=== PATIENT | male | born 1970 | race Caucasian/White ===

== ENCOUNTER 2018-07-29 06:34 | Observation (INO) | payer BC ==
--- NOTE | 2018-07-29 07:33 | ED ---
General Adult HPI - General Chief complaint: Urogenital Stated complaint: Urogenital Time Seen by Provider: 07/29/18 07:02 Source: patient, RN notes reviewed Mode of arrival: EMS Limitations: no limitations - History of Present Illness Initial comments: Patient is a pleasant 47-year-old male presenting to the emergency Department as a transfer from [facility]. Patient has had urinary retention. While there patient did have Altamirano catheter placed and does feel much better. Computed tomography scan was concerning for 5.5 cm mass. also was diagnosed with new-onset diabetes with blood sugar of 345. Patient was unaware of this. Patient was also found to have intermittent tachycardia up to 1:30. Patient denies palpitations. No chest pain. No dyspnea. No leg pain or leg swelling. No history of any similar symptoms previously. - Related Data Home Medications Medication Instructions Recorded Confirmed Atorvastatin Calcium [Lipitor] 20 mg PO HS 11/21/13 09/24/15 Levothyroxine Sodium [Synthroid] 75 mcg PO DAILY 11/21/13 09/24/15 Lisinopril-Hctz 10-12.5 mg 1 each PO DAILY 11/21/13 09/24/15 [Zestoretic 10-12.5] Ibuprofen [Motrin] 600 mg PO Q6HR PRN 09/24/15 09/24/15 Previous Rx's Medication Instructions Recorded Cyclobenzaprine [Flexeril] 10 mg PO TID PRN #15 tab 09/24/15 HYDROcodone/APAP 7.5-325MG [Jefferson 1 tab PO Q6HR PRN #20 tab 09/24/15 7.5-325] Allergies Allergy/AdvReac Type Severity Reaction Status Date / Time No Known Allergies Allergy Verified 07/29/18 06:40 Review of Systems ROS Statement: Those systems with pertinent positive or pertinent negative responses have been documented in the HPI. ROS Other: All systems not noted in ROS Statement are negative. Constitutional: Denies: fever, chills Eyes: Denies: eye pain ENT: Denies: ear pain Respiratory: Denies: cough, dyspnea Cardiovascular: Denies: chest pain, palpitations Endocrine: Denies: fatigue Gastrointestinal: Denies: abdominal pain, nausea, vomiting Genitourinary: Reports: other (Retention) Musculoskeletal: Denies: back pain Skin: Denies: rash Neurological: Denies: weakness Past Medical History Past Medical History: Hyperlipidemia, Hypertension Additional Past Medical History / Comment(s): hypothyroid, back pain History of Any Multi-Drug Resistant Organisms: None Reported Past Surgical History: No Surgical Hx Reported Additional Past Surgical History / Comment(s): bilateral Carpal Tunnel release Past Psychological History: No Psychological Hx Reported Smoking Status: Current every day smoker Past Alcohol Use History: None Reported Past Drug Use History: None Reported General Exam Limitations: no limitations General appearance: alert, in no apparent distress Head exam: Present: atraumatic Eye exam: Present: normal appearance, PERRL ENT exam: Present: normal oropharynx Neck exam: Present: normal inspection Respiratory exam: Present: normal lung sounds bilaterally Cardiovascular Exam: Present: regular rate, normal rhythm, other (Sinus tachycardia at 138 on the monitor. During auscultation patient did convert to sinus rhythm.) GI/Abdominal exam: Present: soft. Absent: tenderness exam: Present: normal inspection, other (Altamirano catheter in place). Absent: testicular tenderness, scrotal swelling Extremities exam: Present: normal inspection. Absent: pedal edema, calf tenderness Neurological exam: Present: alert Psychiatric exam: Present: normal affect, normal mood Skin exam: Present: normal color Course Vital Signs 07/29/18 06:36 Temperature 98.1 F Pulse Rate 89 Respiratory 19 Rate O2 Sat by Pulse 96 Oximetry - Reevaluation(s) Reevaluation #1: 07/29/18 07:31 Computed tomography scan of the chest considered secondary to undiagnosed intermittent tachycardia. With possible mass could be possible PE. Patient did have recent computed tomography scan done however with contrast. Therefore we will order a VQ scan to further evaluate this. Case was discussed in detail Dr. Ellsworth, covering for Dr. Davis, who will admit. Patient and family are aware of plan. Case was also discussed with Dr. Mae from neurology will consult. EKG Findings - EKG Comments: EKG Findings:: Normal sinus rhythm 82. AK 184. QRS 88. QT 390. QTC 455. Normal axis. Normal QRS. No acute ST change. Disposition Clinical Impression: Bladder mass, Urinary retention, Diabetes mellitus, new onset, Tachycardia Disposition: ADMITTED IP TO THIS HOSP Is patient prescribed a controlled substance at d/c from ED?: No Referrals: Ashli Davis DO [Primary Care Provider] - 1-2 days Decision Time: 07:35
[2018-07-29] MEDS ORDERED: NALOXONE 0.4 MG/ML 1 ML VIAL IV PRN (07:38)
[2018-07-29] MEDS ORDERED: SODIUM CHLORIDE 0.9% 1,000 ML IV SCH (07:45)
[2018-07-29 10:03] LABS: Magnesium 1.7 mg/dL (1.6-2.3)
[2018-07-29 10:21] LABS: T4, Free (Free Thyroxine) 1.34 ng/dL (0.78-2.19)
--- NOTE | 2018-07-29 10:38 | NM ---
EXAMINATION TYPE: NM pul vent and perfuse DATE OF EXAM: 07/29/2018 COMPARISON: NONE, no chest x-ray submitted for correlation HISTORY: Tachycardia TECHNIQUE: Utilizing inhalation of 35.9 mCi Tc 99m DTPA aerosol and intravenous injection of 5.19 mC i of Tc 99m MAA, ventilation and perfusion images are acquired post injection in multiple projections . FINDINGS: Normal radiotracer distribution is noted in the lungs. There is no evidence of mismatched defects. Pe rfusion overall appears improved as compared to ventilation. IMPRESSION: Low probability for pulmonary embolism is favored
[2018-07-29 11:14] LABS: Glucose,Whole Blood 226 mg/dL (75-99)
[2018-07-29] MEDS ORDERED: INFLUENZA VACCINE (6 MOS+) 60 MCG/0.5 ML SYRINGE IM ONE (11:19)
[2018-07-29] MEDS: INSULIN ASPART 100 UNIT/ML 1 ML 10 ML VIAL SQ SCH ×3 (12:33→20:55)
[2018-07-29 12:41] LABS: Creatine Kinase 127 U/L (55-170)
--- NOTE | 2018-07-29 12:47 | P.CRDCN ---
History of Present Illness Consult date: 07/29/18 Chief complaint: Hematuria History of present illness: This is a pleasant 47-year-old gentleman with a past medical history significant for hypertension as well as significant history of smoking [facility] and management of what it seems to be a bladder mass. The patient was in his usual state of health until the last 24 hours when he started noticing blood in the urine. No other symptoms of fever or chills. He presented to the emergency room at [facility] for further evaluation and he underwent a computed tomography scan of the abdomen and pelvis which revealed bladder mass. Subsequently the patient was transferred here. He is in process of being seen by the urology service. We get involved in his care because during his hospitalization to [facility] he did have multiple episodes of tachycardia. No episode of tachycardia while the patient here. I did review the chart from [facility] and it did reveal one episode of narrow complex tachycardia likely represent atrial tachycardia but it was of brief duration. During these episodes, the patient was completely asymptomatic and denies having any feeling of heart racing or fluttering, dizziness or lightheadedness, and no symptoms of chest pain or chest discomfort. The patient does have hypertension and also he is obese. He unfortunately a smoker but he is working on smoking cessation. Past Medical History Past Medical History: Hyperlipidemia, Hypertension, Thyroid Disorder Additional Past Medical History / Comment(s): hypothyroid, back pain History of Any Multi-Drug Resistant Organisms: None Reported Past Surgical History: Tonsillectomy Additional Past Surgical History / Comment(s): bilateral Carpal Tunnel release Past Psychological History: No Psychological Hx Reported Smoking Status: Current every day smoker Past Alcohol Use History: None Reported Past Drug Use History: None Reported - Past Family History Mother Family Medical History: Cancer, Hyperlipidemia, Hypertension, Myocardial Infarction (CT), Thyroid Disorder Additional Family Medical History / Comment(s): Breat Ca Father Family Medical History: Myocardial Infarction (CT) Additional Family Medical History / Comment(s): Patients grandparents also had heart attacks. Son(s) Additional Family Medical History / Comment(s): Brain tumor, appendectomy Medications and Allergies Home Medications Medication Instructions Recorded Confirmed Type Atorvastatin Calcium [Lipitor] 20 mg PO HS 11/21/13 07/29/18 History Aspirin EC [Ecotrin] 325 mg PO DAILY 07/29/18 07/29/18 History Levothyroxine Sodium [Synthroid] 125 mcg PO DAILY 07/29/18 07/29/18 History Lisinopril-Hctz 20-12.5 mg 1 tab PO DAILY 07/29/18 07/29/18 History [Zestoretic 20-12.5] Allergies Allergy/AdvReac Type Severity Reaction Status Date / Time No Known Allergies Allergy Verified 07/29/18 09:09 Physical Exam Vitals: Vital Signs Temp Pulse Pulse Resp BP BP Pulse Ox 07/29/18 11:16 55 L 07/29/18 10:42 98.6 F 55 L 16 113/69 98 07/29/18 09:29 81 16 119/72 97 07/29/18 06:36 98.1 F 89 19 96 Intake and Output 07/28/18 07/29/18 07/29/18 22:59 06:59 14:59 Other: Voiding Method Indwelling Catheter Indwelling Catheter Weight 118.388 kg - Constitutional General appearance: no acute distress - Respiratory Respiratory: bilateral: CTA - Cardiovascular Rhythm: regular Heart sounds: normal: S1, S2 Abnormal Heart Sounds: systolic murmur Results Current Medications Generic Name Dose Route Start Last Admin Trade Name Freq PRN Reason Stop Dose Admin Sodium Chloride 1,000 mls @ 20 mls/hr 07/29/18 07:45 07/29/18 11:26 Saline 0.9% IV Not Given .Q24H [facility] Insulin Aspart 0 unit 07/29/18 12:30 Novolog SQ ACHS [facility] Protocol Naloxone HCl 0.2 mg 07/29/18 07:38 Narcan IV Q2M PRN Opioid Reversal Intake and Output 07/28/18 07/29/18 07/29/18 22:59 06:59 14:59 Other: Voiding Method Indwelling Catheter Indwelling Catheter Weight 118.388 kg Assessment and Plan Assessment: Assessment #1 hematuria #2 bladder mass of unknown etiology #3 narrow complex tachycardia likely represent atrial tachycardia #4 history of smoking Plan #1 the TSH and T4 where ordered will follow-up with that #2 I will obtain an echocardiogram was Doppler #3 the patient's resting heart rate has been in the 50s now #4 I would hold on any AV yuval kev agents at this point #5 continue monitor the rhythm while the patient is in the hospital Thank you for allowing us participate in his care and we will continue following up with the patient
[2018-07-29 12:54] LABS: Creatine Kinase MB 0.4 ng/mL (0.0-2.4); Troponin I <0.012 ng/mL (0.000-0.034)
--- NOTE | 2018-07-29 16:19 | P.GSCN ---
History of Present Illness Consult date: 07/29/18 Reason for Consult: Hematuria, urinary retention Requesting physician: Low Ellswroth History of present illness: The patient is a 47-year-old male who was treated for a urinary tract infection 10-15 years ago. He has an otherwise unremarkable urologic history. Yesterday , he began to experience significant urinary frequency and difficulty voiding. He subsequently developed gross hematuria. He presented to the emergency room at [facility]. A Altamirano catheter was placed with return of 400 mL of urine. He developed tachycardia during that hospitalization. He was referred to [facility] for further management. He denies any prior history of urolithiasis. Review of Systems - Constitutional Denies chills, Denies fever - Gastrointestinal Denies nausea, Denies vomiting - Genitourinary Reports hematuria, Reports urinary retention, Denies dysuria Past Medical History Past Medical History: Hyperlipidemia, Hypertension, Thyroid Disorder Additional Past Medical History / Comment(s): hypothyroid, back pain History of Any Multi-Drug Resistant Organisms: None Reported Past Surgical History: Tonsillectomy Additional Past Surgical History / Comment(s): bilateral Carpal Tunnel release Past Psychological History: No Psychological Hx Reported Smoking Status: Current every day smoker Past Alcohol Use History: None Reported Past Drug Use History: None Reported - Past Family History Mother Family Medical History: Cancer, Hyperlipidemia, Hypertension, Myocardial Infarction ([place]), Thyroid Disorder Additional Family Medical History / Comment(s): Otilia Salvador Father Family Medical History: Myocardial Infarction ([place]) Additional Family Medical History / Comment(s): Patients grandparents also had heart attacks. Son(s) Additional Family Medical History / Comment(s): Brain tumor, appendectomy Medications and Allergies Home Medications Medication Instructions Recorded Confirmed Type Atorvastatin Calcium [Lipitor] 20 mg PO HS 11/21/13 07/29/18 History Aspirin EC [Ecotrin] 325 mg PO DAILY 07/29/18 07/29/18 History Levothyroxine Sodium [Synthroid] 125 mcg PO DAILY 07/29/18 07/29/18 History Lisinopril-Hctz 20-12.5 mg 1 tab PO DAILY 07/29/18 07/29/18 History [Zestoretic 20-12.5] Allergies Allergy/AdvReac Type Severity Reaction Status Date / Time No Known Allergies Allergy Verified 07/29/18 09:09 Surgical - Exam Vital Signs Temp Pulse Resp Pulse Ox 98.1 F 89 19 96 07/29/18 06:36 07/29/18 06:36 07/29/18 06:36 07/29/18 06:36 - General well developed, well nourished, no distress - Neck no masses, trachea midline - Respiratory normal respiratory effort - Abdomen Abdomen: soft, non tender, no guarding, no rigid, no rebound - Genitourinary normal penis with no external lesions, testicles non-tender - Rectum Rectum: normal sphincter tone, no masses, other (Prostate mildly enlarged but smooth) - Psychiatric oriented to time, oriented to person, oriented to place, speech is normal, memory intact Results - Labs Abnormal Lab Results - Last 24 Hours (Table) 07/29/18 07/29/18 Range/Units 09:30 11:13 POC Glucose (mg/dL) 226 H (75-99) mg/dL Free T3 pg/mL 2.5 L (2.8-5.3) pg/ml Assessment and Plan (1) Gross hematuria Current Visit: Yes Status: Acute Code(s): R31.0 - GROSS HEMATURIA SNOMED Code(s): 918737000 (2) Urinary retention Current Visit: Yes Status: Acute Code(s): R33.9 - RETENTION OF URINE, UNSPECIFIED SNOMED Code(s): 845865479 (3) Abnormal results on imaging study of genitourinary system Current Visit: Yes Status: Acute Code(s): R93.89 - ABNORMAL FINDINGS ON DX IMAGING OF OTH BODY STRUCTURES SNOMED Code(s): 857206658 Plan: The Altamirano catheter is currently draining blood-tinged urine. I have ordered tamsulosin. The Altamirano catheter will be removed tomorrow morning for a voiding trial. Bladder scan will be utilized to assess bladder emptying. The catheter will be replaced if the urinary retention persists. If he is able to void and empty his bladder adequately, he may be discharged home on tamsulosin. I explained to the patient that the computed tomography scan showed a possible bladder mass, which could represent bladder cancer. I also explained to him that this is more common in smokers. I thus stressed the need for him to follow -up in 1-2 weeks to undergo office cystoscopy. Please notify me if I can be of any further assistance during this hospitalization. Time with Patient: Greater than 30
[2018-07-29 17:17] LABS: Glucose,Whole Blood 266 mg/dL (75-99)
[2018-07-29] MEDS: TAMSULOSIN 0.4 MG CAP.ER.24H PO SCH (17:24)
[2018-07-29 18:38] LABS: Creatine Kinase 126 U/L (55-170)
[2018-07-29 18:51] LABS: Creatine Kinase MB 0.5 ng/mL (0.0-2.4); Troponin I <0.012 ng/mL (0.000-0.034)
[2018-07-29 20:49] LABS: Glucose,Whole Blood 263 mg/dL (75-99)
[2018-07-29] MEDS: NICOTINE 21MG/24HR PATCH TRANSDERM SCH (20:55)
--- NOTE | 2018-07-29 20:55 | HP ---
HISTORY AND PHYSICAL DATE OF ADMISSION: 07/29/2018 DATE OF SERVICE: 07/29/2018 PRESENTING COMPLAINT: Hematuria. HISTORY OF PRESENTING COMPLAINT: This is a very pleasant 47 -year-old patient of Dr. Ashli Davis. Chronic stable medical conditions include hyperlipidemia, hypertension, hypothyroid and chronic low back pain. The patient yesterday morning had multiple bowel movements all formed and then he was also making frequent urination. Also, then he noticed that he was not able to make urine and started having drops of blood, decided to go down to [facility]. There a Altamirano catheter was placed and blood came out. The patient also had a CT scan of the abdomen where a 5.5 cm bladder mass was found. The patient also felt weak and tired. Heart rate was up to 130s and patient was because of lack of urologist there, the patient was transferred to [facility]. Urology was consulted. There is no chest pain, palpitation. Patient is a smoker. REVIEW OF SYSTEMS: CONSTITUTIONAL: Tired. HEENT: None. RESPIRATORY none. CARDIOVASCULAR: None. GASTROINTESTINAL: As above. GENITOURINARY as above. MUSCULOSKELETAL: Chronic low back pain. DERMATOLOGICAL, HEMATOLOGIC, LYMPHATIC: none. PSYCHIATRY: None. NEUROLOGICAL: None. PAST MEDICAL HISTORY: Hypertension, hyperlipidemia, hypothyroid, chronic low back pain. PAST SURGICAL HISTORY: Bilateral carpal tunnel release, tonsillectomy. SOCIAL HISTORY: Smokes a pack a day for about 20 years. . Employed as a welder/fitter. FAMILY HISTORY: Breast cancer. HOME MEDICATIONS: 1. Zestoretic 20/12.5 one tab p.o. daily. 2. Synthroid 125 mcg a day. 3. Lipitor 20 mg q.h.s. 4. Aspirin 325 mg p.o. daily. ALLERGIES: None. PHYSICAL EXAMINATION: VITAL SIGNS: Temperature 98.5, pulse 49, respiration 14, blood pressure 118/58, pulse ox 99% on room air. GENERAL APPEARANCE: Well built, BMI 40.9. Lying in bed, awake tired. EYES: Pupils equal. Conjunctivae normal. HEENT: External appearance of nose and ears normal. Oral cavity normal. NECK: JVD not raised. Mass not palpable. RESPIRATORY: Effort normal. LUNGS are clear. CARDIOVASCULAR: First and second sounds normal. No edema. ABDOMEN: Distended, soft. Liver and spleen not palpable. Altamirano catheter in place with bloody urine. LYMPHATICS: No lymph nodes palpable in the neck and axilla. PSYCHIATRY: Alert and oriented x3. Mood and affect normal. NEUROLOGICAL: Pupils equal. Cranial nerves grossly intact. Power and sensation grossly intact. INVESTIGATIONS: Accu-Cheks are noted. CT scan from [facility] reported a 5.5 cm bladder mass. ASSESSMENT: 1. Acute hematuria with bladder mass of 5.5 cm in a smoker, highly suggestive of malignancy. 2. Essential hypertension. 3. Hyperlipidemia. 4. Hypothyroidism. 5. Morbid obesity BMI 40.9. 6. Chronic nicotine dependence. Patient is a cigarette smoker. 7. Atrial tachycardia. PLAN: Altamirano catheter is in place. The patient was seen by Dr. Mae this evening. Started on Flomax. He wanted this trial of DC Altamirano in the morning and wishes to see the patient as outpatient for cystoscopy. The patient also seen by Cardiology. Think patient may have underlying atrial tachycardia, ordered a 2-D echocardiogram. Care was discussed with the patient and at the bedside. Questions were answered. Copy to Dr. Ashli Davis. MMJAIRL / IJN: [id number] /
[2018-07-29] MEDS: LACTATED RINGERS 1,000 ML IV SCH (20:56)
[2018-07-29] MEDS ORDERED: ATORVASTATIN 20 MG TAB PO SCH (21:00)
[2018-07-29] MEDS: LISINOPRIL-HCTZ 20-12.5 MG 1 EACH TAB PO SCH (21:46)
[2018-07-29] MEDS ORDERED: ACETAMINOPHEN TAB 500 MG TAB PO PRN (21:47)
[2018-07-30 06:02] LABS: Basophils % (A) 0 %; Eosinophils # (A) 0.2 k/uL (0-0.7); Eosinophils % (A) 2 %; HGB 12.5 gm/dL (13.0-17.5); Lymphocytes # (A) 2.3 k/uL (1.0-4.8); Lymphocytes % (A) 24 %; MCH 27.7 pg (25.0-35.0); Mean Platelet Volume 6.8; Monocytes # (A) 0.6 k/uL (0-1.0); Monocytes % (A) 6 %; Neutrophils # (A) 6.2 k/uL (1.3-7.7); Neutrophils % (A) 66 %; Platelet Count 231 k/uL (150-450); RBC 4.53 m/uL (4.30-5.90); RDW 13.9 % (11.5-15.5); WBC 9.5 k/uL (3.8-10.6)
[2018-07-30 06:03] LABS: Glucose,Whole Blood 214 mg/dL (75-99)
[2018-07-30 06:24] LABS: Anion Gap 7 mmol/L; Blood Urea Nitrogen 15 mg/dL (9-20); Calcium 9.1 mg/dL (8.4-10.2); Carbon Dioxide 28 mmol/L (22-30); Chloride 102 mmol/L (98-107); Glucose 200 mg/dL (74-99); Potassium 3.6 mmol/L (3.5-5.1); Sodium 137 mmol/L (137-145)
[2018-07-30] MEDS ORDERED: LEVOTHYROXINE 125 MCG TAB PO SCH (06:30)
[2018-07-30] MEDS: INSULIN ASPART 100 UNIT/ML 1 ML 10 ML VIAL SQ SCH ×3 (06:31→16:51)
[2018-07-30 07:54] VITALS: RESP 16
[2018-07-30] MEDS: LACTATED RINGERS 1,000 ML IV SCH ×2 (08:00→11:50)
[2018-07-30] MEDS: NICOTINE 21MG/24HR PATCH TRANSDERM SCH (08:01)
[2018-07-30] MEDS: LISINOPRIL-HCTZ 20-12.5 MG 1 EACH TAB PO SCH (08:01)
--- NOTE | 2018-07-30 08:37 | CT ---
EXAMINATION TYPE: CT lumbar spine wo/w con DATE OF EXAM: 07/30/2018 COMPARISON: Outside CT 07/29/2018 HISTORY: 47-year-old male with bladder mass, low back pain TECHNIQUE: Contiguous axial scanning of the lumbar spine performed without and with IV Contrast, leila ent injected with 100 mL of Isovue 300. Coronal/sagittal reconstructions performed. CT DLP: 2852.9 mGycm Automated exposure control for dose reduction was used. FINDINGS: There is a transitional lumbosacral segment is noted as a sacralized L5. There is osseous fusion of t he right sided transverse process with the sacroiliac but an assimilation joint on the left. Degenera tive disc disease above at L4-L5 with diffuse disc bulge. Additional bulging discs at L1-L4 levels. Hypertrophic facet arthropathy lower lumbar spine. On the right, changes result in mild neural foraminal stenosis on both sides at L4-L5. Disc material may abut the traversing left L5 nerve root. Small chronic endplate Schmorl's nodes at L1-L2. No acute fracture or osseous destructive process seen. Vertebral body heights are preserved and alignment is maintained. IMPRESSION: 1. TRANSITIONAL LUMBOSACRAL SEGMENT DENOTED A SACRALIZED L5. THERE IS BONY FUSION WITH THE SACRUM ON THE RIGHT AND AN ASSIMILATION JOINT ON THE LEFT. 2. MILD MULTILEVEL DEGENERATIVE DISC DISEASE CHARACTERIZED BY DIFFUSE DISC BULGING, LARGEST AT L4-L5. ADDITIONAL FACET ARTHROPATHY. 3. CHANGES RESULT IN MILD BILATERAL NEURAL FORAMINAL STENOSIS AT L4-L5. DISC MATERIAL MAY ALSO ABUT T HE TRAVERSING LEFT L5 NERVE ROOT AT THIS LEVEL. 4. NO FAZAL CANAL COMPROMISE IDENTIFIED BY CT.
[2018-07-30 09:22] LABS: Hemoglobin A1C 12.8 % (4.0-6.0)
--- NOTE | 2018-07-30 10:24 | ECHOF ---
Referral Reason:svt MEASUREMENTS -------- HEIGHT: 170.2 cm WEIGHT: 114.3 kg BP: 116/73 RVIDd: 3.3 cm (< 3.3) IVSd: 1.3 cm (0.6 - 1.1) LVIDd: 4.1 cm (3.9 - 5.3) LVPWd: 1.3 cm (0.6 - 1.1) IVSs: 2.0 cm LVIDs: 2.4 cm LVPWs: 1.8 cm LA Diam: 3.4 cm (2.7 - 3.8) LAESV Index (A-L): 20.20 ml/m Ao Diam: 3.2 cm (2.0 - 3.7) AV Cusp: 2.4 cm (1.5 - 2.6) MV EXCURSION: 13.536 mm (> 18.000) MV EF SLOPE: 96 mm/s (70 - 150) EPSS: 0.6 cm MV E Daniel: 0.96 m/s MV DecT: 209 ms MV A Daniel: 0.91 m/s MV E/A Ratio: 1.06 RAP: 15.00 mmHg RVSP: 27.61 mmHg FINDINGS -------- Sinus rhythm. This was a technically adequate study. The left ventricular size is normal. There is mild concentric left ventricular hypertrophy. Overa ll left ventricular systolic function is normal with, an EF between 60 - 65 %. The right ventricle is mildly enlarged. Normal LA size by volume 22+/-6 ml/m2. The right atrium is normal in size. The aortic valve is trileaflet and appears structurally normal. The mitral valve is normal. Mild tricuspid regurgitation present. Right ventricular systolic pressure is normal at < 35 mmHg. The pulmonic valve was not well visualized. The aortic root size is normal. Normal inferior vena cava with less than 50% inspiratory collapse consistent with estimated right atr ial pressure of 15 mmHg. There is no pericardial effusion. CONCLUSIONS -------- 1. Sinus rhythm. 2. This was a technically adequate study. 3. The left ventricular size is normal. 4. There is mild concentric left ventricular hypertrophy. 5. Overall left ventricular systolic function is normal with, an EF between 60 - 65 %. 6. The right ventricle is mildly enlarged. 7. Normal LA size by volume 22+/-6 ml/m2. 8. The right atrium is normal in size. 9. The aortic valve is trileaflet and appears structurally normal. 10. The mitral valve is normal. 11. Mild tricuspid regurgitation present. 12. Right ventricular systolic pressure is normal at < 35 mmHg. 13. The pulmonic valve was not well visualized. 14. The aortic root size is normal. 15. Normal inferior vena cava with less than 50% inspiratory collapse consistent with estimated right atrial pressure of 15 mmHg. 16. There is no pericardial effusion. CLINICAL RESEARCH ASSOCIATE: Mary Powers RDCS
[2018-07-30 11:43] LABS: Glucose,Whole Blood 243 mg/dL (75-99)
--- NOTE | 2018-07-30 13:36 | P.PN ---
Progress Note - Text Progress Note Date: 07/30/18 Mr. Lewis continued to have hematuria overnight. The Altamirano catheter was removed this morning, and he has voided several times without difficulty. The hematuria is improved. It would be my recommendation that he be discharged home with a prescription for tamsulosin, and follow-up with me in 1-2 weeks for office cystoscopy. Please notify me if I can be of any further assistance during this hospitalization.
[2018-07-30 14:09] VITALS: BMI 39.5
--- NOTE | 2018-07-30 14:22 | P.PN ---
Subjective Progress Note Date: 07/30/18 This is a pleasant 47-year-old gentleman with history of hypertension , nicotine dependence, who was transferred from [facility], patient has a bladder mass, was seen in consultation by urology. He had his catheter removed this morning, he has voided several times since then he states that he continues to have hematuria however much art historian in color. A cardiology consultation was requested on the patient because he was having some episodes of what appeared to be atrial tachycardia. He is noted to have 1 short episode again through the night last night. An echocardiogram with Doppler study was performed which revealed a normal left ventricular systolic function. TSH level came back to be high at 15.2. Free T4 1 0.3 and Free T3 2.5. Patient was seen and examined this morning, he feels well, he's been up ambulating in the hallway without any difficulty. Objective - Vital Signs Vital signs: Vital Signs Temp 98.1 F 07/30/18 07:53 Pulse 80 07/30/18 11:10 Resp 16 07/30/18 11:02 BP 125/75 07/30/18 11:02 Pulse Ox 98 07/30/18 11:02 Intake & Output 07/29/18 07/30/18 07/30/18 18:59 06:59 18:59 Intake Total 380 1000 845 Output Total 1000 900 Balance 380 0 -55 Weight 114.5 kg 114.5 kg Intake: Intake, IV Titration 1000 125 Amount Lactated Ringers 1,000 ml 1000 125 @ 125 mls/hr IV .Q8H [facility] Rx#:[id number] Oral 380 720 Output: Urine 1000 900 Other: Voiding Method Indwelling Catheter Indwelling Catheter Indwelling Catheter # Voids 3 # Bowel Movements 1 1 - Exam PHYSICAL EXAMINATION: GENERAL: 47-year-old gentleman in no acute distress at the time of my examination HEENT: Head is atraumatic, normocephalic. Pupils equal, round. Sclera anicteric. Conjunctiva are clear. Mucous membranes of the mouth are moist. Neck is supple. There is no elevated jugular venous pressure. No carotid bruit is heard. HEART EXAMINATION: Heart S1, S2 normal. No murmur or gallop heard. CHEST EXAMINATION: Lungs are clear to auscultation and precussion. No chest wall tenderness is noted on palpation or with deep breathing. ABDOMEN: Soft, nontender. Bowel sounds are heard. No organomegaly noted. EXTREMITIES: 2+ peripheral pulses with no evidence of peripheral edema and no calf tenderness noted. NEUROLOGIC patient is awake, alert and oriented X3. . - Labs CBC & Chem 7: 07/30/18 05:16 07/30/18 05:16 Labs: Abnormal Lab Results - Last 24 Hours (Table) 07/29/18 07/29/18 07/29/18 Range/Units 09:30 17:15 20:47 Hgb (13.0-17.5) gm/dL Hct (39.0-53.0) % Glucose (74-99) mg/dL POC Glucose (mg/dL) 266 H 263 H (75-99) mg/dL Hemoglobin A1c 12.8 H (4.0-6.0) % TSH (0.465-4.680) mIU/L 07/30/18 07/30/18 07/30/18 Range/Units 05:16 05:16 05:16 Hgb 12.5 L (13.0-17.5) gm/dL Hct 38.0 L (39.0-53.0) % Glucose 200 H (74-99) mg/dL POC Glucose (mg/dL) (75-99) mg/dL Hemoglobin A1c (4.0-6.0) % TSH 15.200 H (0.465-4.680) mIU/L 07/30/18 07/30/18 Range/Units 06:02 11:23 Hgb (13.0-17.5) gm/dL Hct (39.0-53.0) % Glucose (74-99) mg/dL POC Glucose (mg/dL) 214 H 243 H (75-99) mg/dL Hemoglobin A1c (4.0-6.0) % TSH (0.465-4.680) mIU/L Assessment and Plan Plan: Assessment and plan #1 acute hematuria with bladder mass suggestive of possible malignancy #2 nicotine dependence #3 hypertension #4 hyperlipidemia #5 morbid obesity #6 atrial tachycardia Plan Echo cardiac gram with Doppler study was performed which revealed a normal left ventricular systolic function. We will start the patient on a small dose of beta kev today. From our perspective he may be able to be discharged once he is cleared by primary and urology service. We'll make him a follow-up appointment with Dr. Keys in the office. DNP note has been reviewed, I agree with a documented findings and plan of care. Patient was seen and examined.
[2018-07-30] MEDS ORDERED: METOPROLOL TARTRATE 12.5 MG TAB PO SCH (14:30)
[2018-07-30 15:42] VITALS: BP 122/78; PULSE 86; TEMP 98.2
[2018-07-30] MEDS: TAMSULOSIN 0.4 MG CAP.ER.24H PO SCH (16:31)
[2018-07-30 17:03] LABS: Glucose,Whole Blood 235 mg/dL (75-99)
--- NOTE | 2018-08-01 15:04 | DS ---
DISCHARGE SUMMARY DATE OF ADMISSION: 07/29/2018 DATE OF DISCHARGE: 07/30/2018 FINAL DIAGNOSES: 1. Acute severe hematuria from a bladder mass, POA. 2. Essential hypertension. 3. Hyperlipidemia. 4. Hypothyroidism. 5. Morbid obesity, body mass index 40.9. 6. Chronic nicotine dependence, patient is a cigarette smoker. 7. Paroxysmal atrial tachycardia. 8. Hypothyroidism, uncontrolled. 9. Diabetes mellitus type 2, new diagnosis. HOSPITAL COURSE: This pleasant gentleman presented to [facility] with severe hematuria. Urology was not available today. Hence patient was transferred here. Hematuria eventually settled down. A CT scan done did show a bladder mass of 5.5 cm. Altamirano catheter was taken off. He has been recuperating well. Seen by Dr. Anders who will see the patient as an outpatient for cystoscopy. The patient's free T4 came back a bit low and TSH was elevated at 15.2, and dose of Synthroid was adjusted. The patient had a brief run of atrial tachycardia and patient is on beta-kev for the same per Cardiology. A 2D echocardiogram showed EF of 60%-65%. Patient has evidence of DJD at L4-L5 with diffuse disc bulge. Care was discussed with the patient. Questions were answered. Overall doing better. Also talked at length about weight loss measures. Cigarette smoking cessation counseling was done for the same. Care was discussed with the patient and . I also patient knows taking care patient's multiple times in the past. The patient's sugars have been running high. Patient being started on metformin. Diabetic teaching was carried out. Discussion and discharge planning more than 35 minutes. CONSULTATIONS: Dr. Anders from Urology and Dr. Keys from Cardiology. DC MEDICATIONS: 1. Lipitor 20 mg at bedtime. 2. Zestoretic 20/12.5 one tablet p.o. daily. 3. Synthroid 100 mcg p.o. daily. 4. Lopressor 12.5 p.o. q.h.s. 5. Nicotine 21 mg patch. 6. Flomax 0.4 mg before supper, 30 tablets. 7. Glucophage 500 mg p.o. b.i.d. PHYSICAL EXAMINATION: Temperature 98.2, pulse 86, respiration 16, blood pressure 122/78, pulse ox 96% on room air. The patient's Altamirano catheter is discontinued. No further hematuria. Hemoglobin is 12.5. FOLLOWUP: Follow up with Dr. Keys on 08/17/2018; follow up with Dr. Anders on 08/20/2018; Follow up with Ashli Davis in 1 week. I will call the patient and let him know about the corrected dose of Synthroid 250 mcg, not the one prescribed earlier and send a new prescription. MMODL / IJN: [id number] /
--- NOTE | 2018-08-01 18:52 | DS ---
DISCHARGE SUMMARY ADDENDUM TO DISCHARGE SUMMARY: DATE OF NOTE: 08/01/2018 I called the patient, Leon Lewis, at home. Did let him know that I will be sending the corrected dose of Synthroid to his pharmacy. He is aware of the same. 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 Synthroid dose of 150 mcg a day is being sent to his [facility]. MMODL / IJN: [id number] /
== END 2018-07-30 16:59 | disposition home or self-care (01) ==
LOC: EC 06:34 → 3SCARD 07:56
PROVIDERS: ADMIT Hospitalist; ATTEND Hospitalist
DX: R31.0 Gross hematuria (principal); N32.9 Bladder disorder, unspecified; R33.9 Retention of urine, unspecified; R35.0 Frequency of micturition; R39.198 Other difficulties with micturition; I47.1 Supraventricular tachycardia; E78.5 Hyperlipidemia, unspecified; I10 Essential (primary) hypertension; E03.9 Hypothyroidism, unspecified; E11.9 Type 2 diabetes mellitus without complications; G89.29 Other chronic pain; M54.5 Low back pain; Z79.890 Hormone replacement therapy; Z79.899 Other long term (current) drug therapy; Z79.82 Long term (current) use of aspirin; F17.210 Nicotine dependence, cigarettes, uncomplicated; E66.01 Morbid (severe) obesity due to excess calories; Z68.41 Body mass index [BMI] 40.0-44.9, adult; Z82.49 Family history of ischemic heart disease and other diseases of the circulatory system; Z96.0 Presence of urogenital implants; Z87.440 Personal history of urinary (tract) infections; Z80.3 Family history of malignant neoplasm of breast; Z23 Encounter for immunization
CPT/HCPCS: 99285; 93005; 93306; 84439; 84481; 80048; 82550; 82553; 83735; 84443; 84484; 85025; 83036; 72133; 78582; 90686; G0378 ×2; A9540; A9567; G0008; S4990 ×2; Q9967

== ENCOUNTER 2018-08-21 14:00 | Day surgery (SDC) | payer BC ==
--- NOTE | 2018-08-21 09:21 | P.GSHP ---
History of Present Illness H&P Date: 08/21/18 Chief Complaint: Hematuria The patient is a 47-year-old male who was treated for a urinary tract infection 10-15 years ago. He has an otherwise unremarkable urologic history. Last month he experienced significant urinary frequency and difficulty voiding. He subsequently developed gross hematuria. He presented to the emergency room at [facility]. A Altamirano catheter was placed with return of 400 mL of urine. He developed tachycardia during that hospitalization and was transferred to [facility] for further management. He denies any prior history of urolithiasis. He is now taking tamsulosin and voiding without difficulty. A computed tomography scan showed a possible bladder mass, confirmed by cystoscopy, and he now comes for bladder tumor resection. The tumor involves the left lateral bladder wall, extending into the left prostatic urethra. A satellite tumor is also noted on the anterior bladder wall just cephalad to the vesical neck. The tumor has a papillary appearance. 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 History of Any Multi-Drug Resistant Organisms: None Reported Past Surgical History: Tonsillectomy Additional Past Surgical History / Comment(s): bilateral Carpal Tunnel release Past Anesthesia/Blood Transfusion Reactions: No Reported Reaction Past Psychological History: No Psychological Hx Reported Smoking Status: Former smoker Past Alcohol Use History: None Reported Past Drug Use History: None Reported - Past Family History Mother Family Medical History: Cancer, Hyperlipidemia, Hypertension, Myocardial Infarction ([place]), Thyroid Disorder Additional Family Medical History / Comment(s): Breast Ca Father Family Medical History: Myocardial Infarction ([place]) Additional Family Medical History / Comment(s): Patients grandparents also had heart attacks. Son(s) Additional Family Medical History / Comment(s): Brain tumor, appendectomy Medications and Allergies Home Medications Medication Instructions Recorded Confirmed Type Atorvastatin Calcium [Lipitor] 20 mg PO HS 11/21/13 08/21/18 History Lisinopril-Hctz 20-12.5 mg 1 tab PO HS 07/29/18 08/21/18 History [Zestoretic 20-12.5] Tamsulosin [Flomax] 0.4 mg PO PC-SUPPER #30 cap.er.24h 07/30/18 08/21/18 Rx metFORMIN HCL [Glucophage] 500 mg PO BID #60 tab 07/30/18 08/21/18 Rx Levothyroxine Sodium [Synthroid] 100 mcg PO DAILY 08/21/18 08/21/18 History Metoprolol Tartrate [Lopressor] 25 mg PO HS 08/21/18 08/21/18 History Allergies Allergy/AdvReac Type Severity Reaction Status Date / Time No Known Allergies Allergy Verified 08/21/18 08:55 Surgical - Exam - General well developed, well nourished, no distress - Respiratory normal respiratory effort - Abdomen Abdomen: soft, non tender, no guarding, no rigid, no rebound - Genitourinary normal penis with no external lesions, testicles non-tender - Psychiatric oriented to time, oriented to person, oriented to place, speech is normal, memory intact Assessment and Plan (1) Bladder neoplasm of uncertain malignant potential Status: Acute Code(s): D41.4 - NEOPLASM OF UNCERTAIN BEHAVIOR OF BLADDER SNOMED Code(s): 52004234 Plan: Cystoscopy, TURBT. The procedure has been reviewed in detail with the patient and his . They were made aware of the fact that potential risks include anesthesia, bleeding, infection, and bladder perforation. They understand the need for a Altamirano catheter postoperatively. They also understand the possible need for additional therapy.
[~2018-08-21 14:00] MED LIST: ceFAZolin IN SWFI 2 GM/20 ML SYRINGE IVP ONE
[2018-08-21] MEDS ORDERED: LIDOCAINE 1% 20 ML VIAL (10MG/ML) FOR IV START INTRADERMA ONE (15:00)
[2018-08-21] MEDS ORDERED: LACTATED RINGERS 1,000 ML IV ONE ×2 (15:00→16:54)
[2018-08-21 15:11] LABS: Glucose,Whole Blood 96 mg/dL (75-99)
[2018-08-21 15:17] LABS: Basophils % (A) 0 %; Eosinophils # (A) 0.2 k/uL (0-0.7); Eosinophils % (A) 2 %; Lymphocytes # (A) 2.4 k/uL (1.0-4.8); Lymphocytes % (A) 27 %; MCH 27.7 pg (25.0-35.0); MCHC 32.7 g/dL (31.0-37.0); MCV 84.9 fL (80.0-100.0); Mean Platelet Volume 6.7; Monocytes # (A) 0.5 k/uL (0-1.0); Monocytes % (A) 5 %; Neutrophils # (A) 5.6 k/uL (1.3-7.7); Neutrophils % (A) 63 %; Platelet Count 290 k/uL (150-450); RBC 5.06 m/uL (4.30-5.90); WBC 8.9 k/uL (3.8-10.6)
[2018-08-21 15:23] LABS: Anion Gap 11 mmol/L; Blood Urea Nitrogen 21 mg/dL (9-20); Carbon Dioxide 26 mmol/L (22-30); Chloride 105 mmol/L (98-107); Glucose 100 mg/dL (74-99); Potassium 4.3 mmol/L (3.5-5.1); Sodium 142 mmol/L (137-145)
[2018-08-21] MEDS ORDERED: GLYCOPYRROLATE 0.2 MG/ML 2 ML VIAL ONE (15:37)
[2018-08-21] MEDS ORDERED: LIDOCAINE 1% INJ 10MG/ML (20 ML MDV) ONE (15:37)
[2018-08-21] MEDS ORDERED: ROCURONIUM BROMIDE 10 MG/ML 10 ML VIAL IV ONE (15:37)
[2018-08-21] MEDS ORDERED: fentaNYL (PF) 50 MCG/ML 2 ML AMP ONE (15:37)
[2018-08-21] MEDS ORDERED: MIDAZOLAM 2 MG/2 ML VIAL ONE (15:37)
[2018-08-21] MEDS ORDERED: SUCCINYLCHOLINE CHLORIDE VIAL 200 MG/10 ML VIAL IV ONE (15:37)
[2018-08-21] MEDS ORDERED: NEOSTIGMINE 1 MG/ML 10 ML VIAL ONE (15:37)
[2018-08-21] MEDS ORDERED: PROPOFOL 10 MG/ML 20 ML VIAL IV ONE (15:37)
[2018-08-21] MEDS ORDERED: PHENYLEPHRINE-0.9% NACL SYG 1 MG/10 ML SYRINGE ONE (15:37)
[2018-08-21] MEDS ORDERED: ONDANSETRON 4 MG/2 ML VIAL ONE (15:37)
[2018-08-21] MEDS ORDERED: DEXAMETHASONE SOD PHOS (MDV) 100 MG/10 ML VIAL ONE (15:37)
[2018-08-21] MEDS ORDERED: ceFAZolin 1,000 MG VIAL ONE (15:37)
--- NOTE | 2018-08-21 17:06 | P.OP ---
Date of Procedure: 08/21/18 Preoperative Diagnosis: Bladder tumors Postoperative Diagnosis: Same Procedure(s) Performed: Cystoscopy, Transurethral Resection of Bladder Tumors (Large) Anesthesia: NINIA Surgeon: Paco Anders Estimated Blood Loss (ml): 20 IV fluids (ml): 850 Pathology: other (Tumor fragments from left lateral bladder wall and left prostatic urethra.) Condition: stable Disposition: PACU Indications for Procedure: The patient is a 47-year-old male who was treated for a urinary tract infection 10-15 years ago. He has an otherwise unremarkable urologic history. Last month he experienced significant urinary frequency and difficulty voiding. He subsequently developed gross hematuria. He presented to the emergency room at [facility]. A Altamirano catheter was placed with return of 400 mL of urine. He developed tachycardia during that hospitalization and was transferred to [facility] for further management. He denies any prior history of urolithiasis. He is now taking tamsulosin and voiding without difficulty. A computed tomography scan showed a possible bladder mass, confirmed by cystoscopy, and he now comes for bladder tumor resection. The tumor involves the left lateral bladder wall, extending into the left prostatic urethra. A satellite tumor is also noted on the anterior bladder wall just cephalad to the vesical neck. The tumor has a papillary appearance. Operative Findings: Large bladder tumors arising from left posterolateral bladder wall, just lateral to the left ureteral orifice. The tumors measure approximately 6 cm in diameter, and have a papillary, noninvasive appearance. Tumor also involves the left prostatic urethra Description of Procedure: The patient was taken in the operating room and placed in the dorsal lithotomy position, with his legs supported in Milind stirrups. The external genitalia was prepped and draped sterilely. The 25-Romanian ACMI resectoscope sheath was introduced into the bladder. The bladder was inspected. The entire bladder was examined, revealing papillary tumors arising from the left posterolateral bladder wall, obscuring the left ureteral orifice. This tumors had a papillary , noninvasive appearance and measured approximately 6 cm in size. The right ureteral orifice appears normal. Papillary tumors also noted within the left prostatic urethra. Using the cutting loop, the tumor was resected down to the muscle. As the resection was performed, it was possible to identify the left ureteral orifice immediately adjacent to the tumor. However, there appeared to be flat tumor surrounding the orifice, necessitating that the orifice be resected. The tumor was initially resected, and then the base of the tumor was resected and sent as a separate specimen. Excellent hemostasis was attained, with care taken to avoid the use of electrocautery immediately adjacent to the left ureteral orifice. Next, the left prostatic urethra was resected, down to the stroma, resulting in complete resection. The resected tissue was saved and sent for pathologic examination. An 18-Romanian Altamirano catheter was inserted. The return was clear. The patient tolerated the procedure well. He was taken to the recovery room in stable condition.
[2018-08-21 17:14] LABS: Glucose,Whole Blood 109 mg/dL (75-99)
[2018-08-21] MEDS: HYDROmorphone 1 MG/ML 1 ML SYRINGE IVP ONE ×3 (17:15→17:24)
[2018-08-21] MEDS: fentaNYL (PF) 50 MCG/ML 2 ML AMP IVP ONE ×3 (17:30→18:03)
[2018-08-21 18:41] VITALS: BP 100/55; RESP 18; TEMP 98
[2018-08-21 21:19] VITALS: PULSE 67
== END 2018-08-21 21:30 | disposition home or self-care (01) ==
LOC: OR 14:00 → 1SOBS 17:25 → OR 21:30
PROVIDERS: ATTEND Urology
DX: C67.2 Malignant neoplasm of lateral wall of bladder (principal); C79.19 Secondary malignant neoplasm of other urinary organs; E78.5 Hyperlipidemia, unspecified; I10 Essential (primary) hypertension; E03.9 Hypothyroidism, unspecified; E11.9 Type 2 diabetes mellitus without complications; Z87.440 Personal history of urinary (tract) infections; Z87.891 Personal history of nicotine dependence; Z82.49 Family history of ischemic heart disease and other diseases of the circulatory system; Z79.899 Other long term (current) drug therapy; Z79.84 Long term (current) use of oral hypoglycemic drugs
CPT/HCPCS: 52240; 88305; 80048; 85025; 88307; J2250; J0330; J2710; J2405; J0690; J2001; J3010; J1170; J1100; J2370; J2704

== ENCOUNTER 2019-11-28 23:34 | Emergency (ER) | payer BC ==
[2019-11-28 23:43] VITALS: RESP 18
--- NOTE | 2019-11-28 23:50 | ED ---
General Adult HPI - General Chief complaint: Urogenital Stated complaint: Trouble urinating, post op Time Seen by Provider: 11/28/19 23:43 Source: patient, RN notes reviewed, old records reviewed Limitations: no limitations - History of Present Illness Initial comments: Leon is a 49-year-old male presents emergency Department today with complaints of a blocked Altamirano catheter. Patient reports that he's had hematuria after a tumor was removed from the bladder yesterday. He did have an indwelling Altamirano catheter placed by Dr. Mae. Patient states that initially he was having tea-colored urine but over the past few hours it became more significantly bloody is now blocked. Patient states that he has not had any output from the Altamirano catheter in the past 6 hours. He does complain of lower abdominal distention. - Related Data Home Medications Medication Instructions Recorded Confirmed Atorvastatin Calcium [Lipitor] 20 mg PO HS 11/21/13 08/21/18 Lisinopril-Hctz 20-12.5 mg 1 tab PO HS 07/29/18 08/21/18 [Zestoretic 20-12.5] Levothyroxine Sodium [Synthroid] 100 mcg PO DAILY 08/21/18 08/21/18 Metoprolol Tartrate [Lopressor] 25 mg PO HS 08/21/18 08/21/18 Previous Rx's Medication Instructions Recorded Tamsulosin [Flomax] 0.4 mg PO PC-SUPPER #30 cap.er.24h 07/30/18 metFORMIN HCL [Glucophage] 500 mg PO BID #60 tab 07/30/18 Allergies Allergy/AdvReac Type Severity Reaction Status Date / Time No Known Allergies Allergy Verified 11/28/19 23:41 Review of Systems ROS Statement: Those systems with pertinent positive or pertinent negative responses have been documented in the HPI. ROS Other: All systems not noted in ROS Statement are negative. Past Medical History Past Medical History: Hyperlipidemia, Hypertension, Supraventricular Tachycardia (SVT), Thyroid Disorder Additional Past Medical History / Comment(s): hypothyroid, back pain, History of Any Multi-Drug Resistant Organisms: None Reported Past Surgical History: Tonsillectomy Additional Past Surgical History / Comment(s): bilateral Carpal Tunnel release, bladder surgery for cancer, Past Anesthesia/Blood Transfusion Reactions: No Reported Reaction Past Psychological History: No Psychological Hx Reported Smoking Status: Former smoker Past Alcohol Use History: None Reported Past Drug Use History: None Reported - Past Family History Mother Family Medical History: Cancer, Hyperlipidemia, Hypertension, Myocardial Infarction ([place]), Thyroid Disorder Additional Family Medical History / Comment(s): Breast Ca Father Family Medical History: Myocardial Infarction ([place]) Additional Family Medical History / Comment(s): Patients grandparents also had heart attacks. Son(s) Additional Family Medical History / Comment(s): Brain tumor, appendectomy General Exam - General Exam Comments Initial Comments: 49-year-old male. Alert and oriented 3. Limitations: no limitations General appearance: alert, in no apparent distress Head exam: Present: atraumatic, normocephalic, normal inspection Eye exam: Present: normal appearance ENT exam: Present: normal exam, mucous membranes moist Neck exam: Present: normal inspection. Absent: tenderness, meningismus, lymphadenopathy Respiratory exam: Present: normal lung sounds bilaterally. Absent: respiratory distress, wheezes, rales, rhonchi, stridor Cardiovascular Exam: Present: regular rate, normal rhythm, normal heart sounds. Absent: systolic murmur, diastolic murmur, rubs, gallop, clicks GI/Abdominal exam: Present: soft, normal bowel sounds. Absent: distended, tenderness, guarding, rebound, rigid exam: Present: normal inspection (Patient has indwelling Altamirano catheter with bright red blood and clotting the catheter tube.) Extremities exam: Present: normal inspection, full ROM, normal capillary refill. Absent: tenderness, pedal edema, joint swelling, calf tenderness Back exam: Present: normal inspection Neurological exam: Present: alert, oriented X3, CN II-XII intact Psychiatric exam: Present: normal affect, normal mood Skin exam: Present: warm, dry, intact, normal color. Absent: rash Course Vital Signs 11/28/19 11/29/19 23:37 01:14 Temperature 99.1 F 98.5 F Pulse Rate 89 72 Respiratory 18 18 Rate Blood Pressure 170/104 131/88 O2 Sat by Pulse 98 96 Oximetry Medical Decision Making - Medical Decision Making 49-year-old male presents emergency today for obstructed Altamirano catheter after having a bladder removal procedure done yesterday. Patient has this indwelling Altamirano catheter is continue take it out on its own. At this time he does have quite a large amount of blood in the Altamirano catheter. It was flushed and Patient was feeling relief of the suprapubic tenderness and approximately a liter of bloody urine was removed. Due to the amount of blood appearance to the catheter we did check patient's basic lab work. Hemoglobin is stable. I did discuss with the Patient that he should follow-up with his urologist to have this Altamirano catheter discontinued byburology rather than taking out on its own if he is continuing to have significant blood. Patient was advised on how to flush-like catheter if he has have any further obstruction, but there is any concern he can always return to the ER. Patient is agreeable to this treatment plan will evans blanca. - Lab Data Result diagrams: 11/29/19 00:22 11/29/19 00:22 Lab Results 11/29/19 11/29/19 11/29/19 Range/Units 00:22 00:22 00:22 WBC 11.6 H (3.8-10.6) k/uL RBC 5.06 (4.30-5.90) m/uL Hgb 13.8 (13.0-17.5) gm/dL Hct 42.7 (39.0-53.0) % MCV 84.4 (80.0-100.0) fL MCH 27.3 (25.0-35.0) pg MCHC 32.3 (31.0-37.0) g/dL RDW 14.0 (11.5-15.5) % Plt Count 319 (150-450) k/uL Neutrophils % 71 % Lymphocytes % 23 % Monocytes % 5 % Eosinophils % 1 % Basophils % 1 % Neutrophils # 8.2 H (1.3-7.7) k/uL Lymphocytes # 2.6 (1.0-4.8) k/uL Monocytes # 0.5 (0-1.0) k/uL Eosinophils # 0.1 (0-0.7) k/uL Basophils # 0.1 (0-0.2) k/uL PT 10.2 (9.0-12.0) sec INR 1.0 (<1.2) APTT 23.0 (22.0-30.0) sec Sodium 134 L (137-145) mmol/L Potassium 3.7 (3.5-5.1) mmol/L Chloride 99 (98-107) mmol/L Carbon Dioxide 22 (22-30) mmol/L Anion Gap 13 mmol/L BUN 20 (9-20) mg/dL Creatinine 0.97 (0.66-1.25) mg/dL Est GFR (CKD-EPI)AfAm >90 (>60 ml/min/1.73 sqM) Est GFR (CKD-EPI)NonAf >90 (>60 ml/min/1.73 sqM) Glucose 296 H (74-99) mg/dL Calcium 9.3 (8.4-10.2) mg/dL Disposition Clinical Impression: Altamirano catheter problem, Gross hematuria Disposition: HOME SELF-CARE Condition: Good Instructions (If sedation given, give patient instructions): Hematuria (ED) Additional Instructions: Patient advised to follow-up with urology and discuss if urology may need to remove the catheter versus doing it on your own. If there is any further concern for obstruction Patient can attempt to flush but if there is any difficulty please return to the ER for reevaluation. Monitor for any signs of f ever, or worsening blood within the catheter and if severe patient can return to the ER. Is patient prescribed a controlled substance at d/c from ED?: No Referrals: Alba Pierce MD [Primary Care Provider] - 1-2 days Time of Disposition: 01:46
[2019-11-29 01:03] LABS: Basophils # (A) 0.1 k/uL (0-0.2); Basophils % (A) 1 %; Eosinophils # (A) 0.1 k/uL (0-0.7); Eosinophils % (A) 1 %; HCT 42.7 % (39.0-53.0); HGB 13.8 gm/dL (13.0-17.5); Lymphocytes # (A) 2.6 k/uL (1.0-4.8); Lymphocytes % (A) 23 %; MCH 27.3 pg (25.0-35.0); MCHC 32.3 g/dL (31.0-37.0); MCV 84.4 fL (80.0-100.0); Mean Platelet Volume 6.9; Monocytes # (A) 0.5 k/uL (0-1.0); Monocytes % (A) 5 %; Neutrophils # (A) 8.2 k/uL (1.3-7.7); Neutrophils % (A) 71 %; Platelet Count 319 k/uL (150-450); RBC 5.06 m/uL (4.30-5.90); WBC 11.6 k/uL (3.8-10.6)
[2019-11-29 01:16] VITALS: BP 131/88; PULSE 72; TEMP 98.5
[2019-11-29 01:27] LABS: Potassium 3.7 mmol/L (3.5-5.1)
[2019-11-29 01:28] LABS: African American GFR (CKD) >90 (>60 ml/min/1.73 sqM); Anion Gap 13 mmol/L; Blood Urea Nitrogen 20 mg/dL (9-20); Calcium 9.3 mg/dL (8.4-10.2); Carbon Dioxide 22 mmol/L (22-30); Chloride 99 mmol/L (98-107); Glucose 296 mg/dL (74-99); Non-African American GFR(CKD) >90 (>60 ml/min/1.73 sqM); Sodium 134 mmol/L (137-145)
[2019-11-29 01:31] LABS: Prothrombin Time 10.2 sec (9.0-12.0)
== END 2019-11-29 01:51 | disposition home or self-care (01) ==
LOC: EC 23:34
DX: T83.098A Other mechanical complication of other urinary catheter, initial encounter (principal); R31.0 Gross hematuria; E78.5 Hyperlipidemia, unspecified; I10 Essential (primary) hypertension; E03.9 Hypothyroidism, unspecified; Z79.890 Hormone replacement therapy; Z79.899 Other long term (current) drug therapy; Z87.891 Personal history of nicotine dependence
CPT/HCPCS: 36415; 80048; 85025; 85610; 85730; 86850; 86900; 86901; 99284

== ENCOUNTER → 2020-08-13 | Outpatient (CLI) | payer BC ==
[2020-08-13 07:54] LABS: African American GFR (CKD) >90 (>60 ml/min/1.73 sqM); Blood Urea Nitrogen 13 mg/dL (9-20); Non-African American GFR(CKD) >90 (>60 ml/min/1.73 sqM)
--- NOTE | 2020-08-13 08:45 | CT ---
EXAMINATION TYPE: CT abdomen w con DATE OF EXAM: 08/13/2020 COMPARISON: None HISTORY: F/U staging CA, Bladder CT DLP: 2019 mGycm CONTRAST: CT scan of the abdomen is performed with Oral Contrast and with IV Contrast, patient injected with 10 0 mL of Isovue 300. FINDINGS: LUNG BASES-: There are approximately 3 or 4 sub-3 mm pulmonary nodules at the left lung base with 1 3 mm pulmonary nodule seen at the right lung base. The findings are nonspecific and appropriate follow -up is recommended to exclude metastatic disease. No infiltrate. LIVER/GB: No calcified gallstones. The liver is enlarged and demonstrates underlying hepatic steat osis. No space occupying hepatic lesion. Biliary tree is of normal caliber. There is soft tissue in t he region of the greer hepatis measuring 3.1 cm which may reflect adenopathy. PANCREAS: No inflammation. No distinct mass. SPLEEN: No splenic enlargement. No lesion seen. ADRENALS: No nodule. No thickening. KIDNEYS: No hydronephrosis. No nephrolithiasis. No distinct renal mass. BOWEL: Visualized bowel loops are of normal caliber. GENITAL ORGANS: No gross abnormality. LYMPH NODES: There is soft tissue in the region of the greer hepatis measuring 3.1 cm which may ref lect adenopathy.No additional greater than 1cm abdominal lymph nodes are appreciated. AORTA: No significant abnormality. OSSEOUS STRUCTURES: No significant abnormality is seen. OTHER: No significant additional abnormality is seen. IMPRESSION: 1. Several small nondescript and nonspecific basilar pulmonary nodular densities seen. Consider CT of the chest for further evaluation as well as appropriate follow-up. 2. Soft tissue in the region of the greer hepatis may reflect adenopathy. 3. Hepatomegaly and underlying hepatic steatosis.
== END | disposition home or self-care (01) ==
LOC: RADCTMAIN 07:13
PROVIDERS: ATTEND Urology
DX: D49.4 Neoplasm of unspecified behavior of bladder (principal); J98.4 Other disorders of lung; K76.0 Fatty (change of) liver, not elsewhere classified; R16.0 Hepatomegaly, not elsewhere classified; C67.2 Malignant neoplasm of lateral wall of bladder
CPT/HCPCS: 82565; 84520; 74160; Q9967

== ENCOUNTER → 2020-08-27 | Outpatient (CLI) | payer BC ==
[2020-08-27 09:07] LABS: African American GFR (CKD) >90 (>60 ml/min/1.73 sqM); Blood Urea Nitrogen 13 mg/dL (9-20); Non-African American GFR(CKD) >90 (>60 ml/min/1.73 sqM)
--- NOTE | 2020-08-27 10:06 | CT ---
EXAMINATION TYPE: CT chest w con DATE OF EXAM: 08/27/2020 COMPARISON: CT abdomen August 13, 2010. HISTORY: Bladder CA CT DLP: 569.1 mGycm. Automated Exposure Control for Dose Reduction was Utilized. TECHNIQUE: CT scan of the thorax is performed following with IV Contrast, patient injected with 100 mL of Isovue 300. FINDINGS: LUNGS: Scattered small nodules in the lower lungs are redemonstrated. For reference there is 5 x 4 mm groundglass nodule left lung base axial image [address] There is stable 3 mm g roundglass nodule axial image 35 and subpleural 5 x 3 mm nodule left lung base axial image 36. Slight ly more prominent 4 x 3 mm subpleural nodule axial image 37 posteriorly on current study. There is 6 x 4 mm lateral right basilar nodule actually measures 34 not clearly seen on prior study. Smaller nodules anterior right mid to lower lung axial image 29 and 30 are noted. There is faint 4 mm right upper lobe nodule centrally axial image 18. No pleural effusion or pneumothorax seen bilaterally. MEDIASTINUM: There are no greater than 1 cm hilar or mediastinal lymph nodes. Tiny pericardial effusi on is seen anterior-inferior aspect. Moderate coronary artery calcification is present. No cardiomeg agustin. OTHER: Visualized liver is heterogeneously low dense consistent with diffuse fatty infiltration. IMPRESSION: Scattered small nonspecific nodules up to 5 mm in size greatest in the lower lungs. Follo w-up repeat CT in 3-6 months time is advised to reassess.
== END | disposition home or self-care (01) ==
LOC: RADCTMAIN 08:36
PROVIDERS: ATTEND Urology
DX: C67.2 Malignant neoplasm of lateral wall of bladder (principal); R91.8 Other nonspecific abnormal finding of lung field
CPT/HCPCS: 82565; 84520; 71260; 36415; Q9967

== ENCOUNTER → 2021-02-26 | Outpatient (CLI) | payer BC ==
[2021-02-26 12:42] LABS: African American GFR (CKD) >90 (>60 ml/min/1.73 sqM); Blood Urea Nitrogen 13 mg/dL (9-20); Non-African American GFR(CKD) >90 (>60 ml/min/1.73 sqM)
--- NOTE | 2021-02-26 15:55 | CT ---
EXAMINATION TYPE: CT ChestAbdPelvis w con DATE OF EXAM: 02/26/2021 COMPARISON: 08/27/2020, 08/13/2020, 07/29/2018 HISTORY: 50-year-old male C6 7.9, F/U staging bladder cancer TECHNIQUE: Contiguous axial scanning of the chest, abdomen, pelvis performed with IV Contrast, patien t injected with 100 ml mL of Isovue 300. Delayed images through the kidneys were obtained. Coronal/sa gittal reconstructions performed. CT DLP: 2959 mGycm Automated exposure control for dose reduction was used. FINDINGS: CHEST: The heart is normal size without pericardial effusion. Aorta normal caliber with conventional arch vessel branching anatomy. No thoracic lymphadenopathy by CT size criteria. Stable few scattered 4 mm and smaller pulmonary nodules. No new or enlarging pulmonary nodule seen. No consolidation or pleural effusion. ABDOMEN: Low attenuation of the liver and borderline enlargement at 17.7 cm compatible with hepatic steatosis. -Portacaval lymph node enlarged at 1.9 cm, unchanged back to 07/29/2018 suggesting chronic reactive/po st inflammatory etiology. -Additional lymph node at the greer hepatis measuring 1.1 cm thick is also unchanged. -Gastrohepatic ligament lymph node upper abdomen 7 mm, unchanged. -Some prominent but not enlarged retroperitoneal lymph nodes measuring up to 7 mm. Spleen enlarged at 15.6 cm, unchanged. No dilated small bowel, free fluid, or free air. Gallbladder, adrenal glands, kidneys with lobulated contours, and pancreas appear within normal limit s. Mild stool burden. No pericolic inflammatory change. PELVIS: There is focal poorly defined thickening along the anterior midline bladder wall measuring 2.4 cm. On the prior through this area is the outside comparison from 07/29/2018 where an intraluminal mass was present along the base of the bladder. Multiple pelvic fluids. No abnormal fluid collection in the pe lvis or pelvic lymphadenopathy. BONES: No osseous destructive process. Right L5 hemisacralization. Degenerative disc disease above at L4-L5. IMPRESSION: 1. FOCAL POORLY DEFINED THICKENING ALONG THE ANTERIOR MIDLINE BLADDER WALL MEASURES 2.4 CM. THE ONLY PRIOR THROUGH THIS AREA WAS THE OUTSIDE COMPARISON FROM 07/29/2018 WHERE A LARGE INTRALUMINAL BLADDER MASS WAS PRESENT. WHILE THAT PREVIOUSLY SEEN MASS HAS RESOLVED, IT IS UNCLEAR IF THE PRESENT FINDING REPRESENTS RECURRENCE VERSUS POSTSURGICAL/POSTTREATMENT CHANGE. FURTHER CLINICAL CORRELATION AND APPR OPRIATE FOLLOW-UP RECOMMENDED. 2. SCATTERED 4 MM AND SMALLER PULMONARY NODULES UNCHANGED FOR 6 MONTHS. CONTINUED FOLLOW-UP RECOMMEND ED. 3. HEPATIC STEATOSIS AND STABLE SPLENOMEGALY AT 15.6 CM.
== END | disposition home or self-care (01) ==
LOC: RADCTMAIN 11:44
PROVIDERS: ATTEND Urology
DX: C67.9 Malignant neoplasm of bladder, unspecified (principal); K76.0 Fatty (change of) liver, not elsewhere classified; R16.1 Splenomegaly, not elsewhere classified; R91.8 Other nonspecific abnormal finding of lung field
CPT/HCPCS: 82565; 84520; 71260; 74177; 36415; Q9967

== ENCOUNTER → 2022-02-17 | Outpatient (CLI) | payer BC ==
[2022-02-17 15:11] LABS: African American GFR (CKD) >90 (>60 ml/min/1.73 sqM); Blood Urea Nitrogen 14 mg/dL (9-20); Non-African American GFR(CKD) >90 (>60 ml/min/1.73 sqM)
--- NOTE | 2022-02-18 07:23 | CT ---
EXAMINATION TYPE: CT ChestAbdPelvis w con DATE OF EXAM: 02/17/2022 COMPARISON: Prior CT February 26, 2021 and older CTs. HISTORY: bladder CA, lung nodule CT DLP: 2286.4 mGycm. Automated Exposure Control for Dose Reduction was Utilized. CONTRAST: CT scan of the thorax, abdomen and pelvis is performed with oral and with IV Contrast, patient inject ed with 100 mL of Isovue 300. FINDINGS: LUNGS: Stable scattered small nodules. For reference is a 5 x 4 mm groundglass nodule left lower lobe axial image 39. Stable subpleural left lung 3 mm nodule axial image 30. No new or enlarging greater than 5 mm pulmonary nodules. No pleural effusion or pneumothorax seen. The tracheobronchial tree is patent. MEDIASTINUM: There are no greater than 1 cm hilar or mediastinal lymph nodes. No cardiomegaly or pe ricardial effusion is seen. Coronary artery calcification redemonstrated. LIVER/GB: Liver remains diffusely low dense suggesting diffuse fatty infiltration. No new biliary dil atation. PANCREAS: No significant abnormality is seen. SPLEEN: No significant abnormality is seen. ADRENALS: No significant abnormality is seen. KIDNEYS: Symmetrical cortical medullary uptake and excretion without hydronephrosis seen bilaterally. Poorly distended bladder on exam with abnormal soft tissue anteriorly measuring approximately 3.4 x 2.7 cm similar in appearance to prior study axial image 116 where there was more distended bladder. BOWEL: Oral contrast reaches the level of the proximal transverse colon. No suspicious small or large bowel dilatation. GENITAL ORGANS: Occasional scattered pelvic phleboliths. LYMPH NODES: No new greater than 1cm abdominal or pelvic lymph nodes are appreciated. OSSEOUS STRUCTURES: Sacralized right L5 segment redemonstrated. Mild disc space narrowing with vacuum disc phenomenon L4-L5 level redemonstrated. OTHER: No significant additional abnormality is seen. IMPRESSION: Stable scattered small pulmonary nodules favored benign or postinflammatory. Nonspecific irregular soft tissue anterior bladder wall fairly stable from most recent CT favoring posttreatment change. No definitive new or enlarging mass or adenopathy seen.
== END | disposition home or self-care (01) ==
LOC: RADCTMAIN 14:23
PROVIDERS: ATTEND Urology
DX: C67.9 Malignant neoplasm of bladder, unspecified (principal); R91.8 Other nonspecific abnormal finding of lung field
CPT/HCPCS: 82565; 84520; 71260; 74177; Q9967

== ENCOUNTER → 2023-02-21 | Outpatient (CLI) | payer BC ==
[2023-02-21 15:25] LABS: African American GFR (CKD) >90 (>60 ml/min/1.73 sqM); Blood Urea Nitrogen 14 mg/dL (9-20); Non-African American GFR(CKD) >90 (>60 ml/min/1.73 sqM)
--- NOTE | 2023-02-21 17:56 | CT ---
EXAMINATION TYPE: CT ChestAbdPelvis w con CT DLP: 2307.9 mGycm, Automated exposure control for dose reduction was used. DATE OF EXAM: 02/21/2023 4:32 PM COMPARISON: CT chest abdomen pelvis 02/17/2022, 02/26/2021 CLINICAL INDICATION:Male, 52 years old with history of C67.2 MALIGNANT NEOPLASM OF LATERAL WALL OF BL ADDE; PHH, f/u bladder ca Technique: Multiple axial images of the chest, abdomen, and pelvis were obtained following the intrav enous administration of 100 mL Isovue-300. Oral contrast was administered. Two-dimensional coronal an d sagittal reconstructions were obtained. Findings: LUNGS: Stable scattered small nodules from prior examination. No new or enlarging pulmonary nodules. Example includes a left lower lobe 4.4 mm groundglass nodule (series 4, image 36) and a right lower l obe 4 mm ground glass nodule (series 4, image 37). No pleural effusion or pneumothorax seen. No foca l consolidation. The tracheobronchial tree is patent. MEDIASTINUM: There are no greater than 1 cm hilar or mediastinal lymph nodes. No cardiomegaly or pe ricardial effusion is seen. Coronary artery calcifications redemonstrated. LIVER/GB: Liver remains diffusely low dense suggesting diffuse fatty infiltration. Subtle surface nod ularity demonstrated. No focal lesion. No new biliary dilatation. Gallbladder is contracted. PANCREAS: No significant abnormality is seen. SPLEEN: Mildly enlarged measuring 15.9 cm in AP dimension. ADRENALS: No significant abnormality is seen. KIDNEYS: Symmetrical cortical medullary uptake and excretion without hydronephrosis seen bilaterally. Poorly distended bladder on exam with abnormal soft tissue anteriorly again measuring approximately 2.7 x 2.3 cm similar in appearance to prior study. BOWEL: Oral contrast reaches the mid small bowel. No suspicious small or large bowel dilatation. Appe ndix is within normal limits. No focal stranding inflammatory changes or bowel wall thickening. GENITAL ORGANS: Occasional scattered pelvic phleboliths. LYMPH NODES: No new greater than 1cm abdominal or pelvic lymph nodes are appreciated. OSSEOUS STRUCTURES: Sacralized right L5 segment redemonstrated. Mild disc space narrowing with vacuum disc phenomenon at the L4-L5 level redemonstrated. No aggressive osseous lesion. OTHER: No significant additional abnormality is seen. No abdominal aortic aneurysm. IMPRESSION: 1. Stable scattered small pulmonary nodules. No new or enlarging pulmonary nodules. Favored to be be nign. Nonspecific stable irregular soft tissue along the anterior bladder wall favors posttreatment change. No definitive new or enlarging mass or adenopathy identified. 2. Hepatic steatosis with subtle surface nodularity which may represent cirrhosis. Correlation with liver function tests is recommended. 3. Mild splenomegaly.
== END | disposition home or self-care (01) ==
LOC: RADCTMAIN 14:22
PROVIDERS: ATTEND Urology
DX: C67.2 Malignant neoplasm of lateral wall of bladder (principal); K76.0 Fatty (change of) liver, not elsewhere classified; R16.1 Splenomegaly, not elsewhere classified; R91.8 Other nonspecific abnormal finding of lung field; N32.89 Other specified disorders of bladder
CPT/HCPCS: 82565; 84520; 71260; 74177; 36415; Q9967

== ENCOUNTER → 2024-02-28 | Outpatient (CLI) | payer BC ==
[2024-02-28 15:02] LABS: African American GFR (CKD) >90 (>60 ml/min/1.73 sqM); Blood Urea Nitrogen 16 mg/dL (9-20); Non-African American GFR(CKD) >90 (>60 ml/min/1.73 sqM)
--- NOTE | 2024-02-28 21:55 | CT ---
EXAMINATION TYPE: CT ChestAbdPelvis w con DATE OF EXAM: 02/28/2024 INDICATION: Hx of bladder CA and lung Nodules. COMPARISON: 02/21/2023 CT DLP: 2561 mGycm CONTRAST: Performed with Oral Contrast and with IV Contrast, patient injected with 100ml mL of Isovue 300. TECHNIQUE: Axial images at 5 mm thick sections. Reconstructed images in the coronal plane. Delayed images through the kidneys. FINDINGS: CT CHEST: Portion of the thyroid visualized is normal. There is a 0.5 cm nodule in the posterior lateral left lung base. Series 3 image 37. There may be a t iny 0.3 cm nodule right lung base. Series 3 image 37. A 0.5 cm nodule posterior lateral left lung bas e. Series 3 image 40. These nodules appear to be present previously. A 1.0 cm nodule is along the right mediastinal border. Series 3 image 33. This may be new. No enlarged mediastinal or hilar adenopathy is evident. The ascending aorta diameter at the level of the main pulmonary artery is 3.6 cm. The main pulmonary artery diameter at the bifurcation is 2.[address] ABDOMEN: Liver: There is mild to moderate fatty infiltration of the liver. No discrete masses are evident. Hep atomegaly is present. Spleen: Normal Pancreas: Normal Adrenal glands: The adrenal glands are normal. Gallbladder: Decompressed Kidneys: No masses are evident. No hydronephrosis is present. No cysts are present. Delayed images were obtained through the kidneys, which remain unremarkable. Aorta: Vascular calcification is within the aorta. Inferior vena cava: Normal. CT PELVIS: Loops of bowel within the abdomen and pelvis are normal. There are loops of bowel which are incom pletely distended or lack oral contrast limiting their evaluation. Appendix: Normal as visualized. Urinary bladder: Decompressed with limited evaluation. No contrast fills the urinary bladder during t his exam Genitourinary structures: Prostate appears normal Osseous structures: No suspicious lytic or sclerotic lesions. IMPRESSION: 1. Scattered punctate nodularity. A new 1 cm nodule may be along the right mediastinal border. Remain ing nodules appear similar to comparison. 2. No additional new findings to suggest metastatic disease.
== END | disposition home or self-care (01) ==
LOC: RADCTMAIN 14:18
PROVIDERS: ATTEND Urology
DX: C67.9 Malignant neoplasm of bladder, unspecified
CPT/HCPCS: 36415; 71260; 74177; 82565; 84520

== ENCOUNTER → 2024-03-28 | Outpatient (CLI) | payer BC ==
--- NOTE | 2024-04-01 01:00 | PE ---
EXAMINATION TYPE: PET CT fusion skull to thigh DATE OF EXAM: 03/28/2024 COMPARISON: Chest abdomen and pelvis 02/28/2024 Prior PET/CT: No prior PET/CT at this location. HISTORY: Bladder cancer, pulmonary mass TECHNIQUE: Following the intravenous administration of 11.94 mCi of F-18 FDG, whole body images are performed from the skull base to the midthigh. Images are reviewed on the computer in the coronal, a xial, and sagittal planes. Reconstructed rotating images are created on independent workstation and reviewed on the computer. A localization and attenuation correction CT is performed in conjunction with the PET scan. DLP: 972.37 mGycm SCAN: Subsequent Blood glucose: 128 mg/dL Average Mediastinum SUV: 2.3 Average Liver SUV: 2.28 FINDINGS: NECK: There is increased uptake in the region of the thyroid bed more so on the right than the left. The greatest SUV is 8.24., Image 64. THORAX: There is a punctate density within the right middle lobe. Image 105, SUV 3.09. ABDOMEN: No abnormal uptake PELVIS: No abnormal uptake. There is radiotracer bladder excretion. Uptake neoplasm of the difficult to exclude. Note is made of minimal wall irregularity along the anterior urinary bladder localization CT. No regional metastatic changes are OSSEOUS STRUCTURES: No suspicious uptake LOCALIZATION CT: Minimal posterior wall irregularity of the urinary bladder. Tiny nodule is identifie d within the mediastinal border on the right corresponding to the focus of radiotracer uptake. COMPARISON: Right mediastinal border nodule was evident on the previous chest CT IMPRESSION: 1. Suspicious radiotracer uptake within the mediastinal border nodule at the right lung. This is only minimally elevated and other etiologies such as inflammatory change be considered. 2. There is diffuse uptake within the thyroid. 3. Suspicious changes for metastatic urinary bladder cancer not otherwise evident. [facility], , 04/01/2024 12:58 AM
== END | disposition home or self-care (01) ==
LOC: RADPETMAIN 15:34
PROVIDERS: ATTEND Urology
DX: C67.2 Malignant neoplasm of lateral wall of bladder (principal); R91.8 Other nonspecific abnormal finding of lung field
CPT/HCPCS: 78815; A9552